=== PATIENT | male | born 1985 | race Caucasian/White ===

== ENCOUNTER 2020-11-07 01:58 | Emergency (ER) | payer OTHER ==
[~2020-11-07] VITALS: Ht 185.4 cm; Wt 82.0 kg
[2020-11-07] MEDS ORDERED: KETOROLAC 30 MG/1 ML ONE (02:24)
[2020-11-07] MEDS ORDERED: ONDANSETRON 2MG/ML, 2ML ONE (02:24)
[2020-11-07] MEDS ORDERED: MORPHINE SULFATE 4 MG/ML, 1ML ONE (02:24)
[2020-11-07] MEDS ORDERED: MORPHINE SULFATE 4 MG/ML, 1ML IVPush PRN (02:30)
[2020-11-07] MEDS ORDERED: KETOROLAC 30 MG/1 ML IVPush ONE (02:30)
[2020-11-07] MEDS ORDERED: SODIUM CHLORIDE FLUSH 10ML SYR IVF ONE (02:30)
[2020-11-07] MEDS ORDERED: ONDANSETRON 2MG/ML, 2ML IVPush ONE (02:30)
[2020-11-07 03:01] VITALS: BP 131/86
== END 2020-11-07 03:46 | disposition home or self-care (01) ==
LOC: ED 02:37
DX: N20.2 Calculus of kidney with calculus of ureter (principal); R10.9 Unspecified abdominal pain; R11.2 Nausea with vomiting, unspecified
CPT/HCPCS: 96374; 96375; 99284; J1885; J2270; J2405